=== PATIENT | female | born 1960 | race American Indian/Alaskan Native ===

== ENCOUNTER 2017-06-16 18:58 | Emergency (ER) | payer OTHER ==
[2017-06-16] MEDS ORDERED: ASPIRIN PO ONE (19:13)
[2017-06-16 19:56] LABS: Basophils % (Auto) 0.5 % (0.0-1.8); Eosinophils # (Auto) 0.1 K/mm3 (0.0-0.4); Eosinophils % (Auto) 0.8 % (0.0-4.3); Hematocrit 39.9 % (30.3-42.9); Hemoglobin 13.3 gm/dl (10.1-14.3); Lymphocytes # (Auto) 2.8 K/mm3 (1.2-5.4); Lymphocytes % (Auto) 33.4 % (13.4-35.0); Mean Corpuscular HGB Conc 33 % (30-34); Mean Corpuscular Hemoglobin 29 pg (28-32); Mean Corpuscular Volume 86 fl (79-97); Monocytes # (Auto) 0.5 K/mm3 (0.0-0.8); Monocytes % (Auto) 5.8 % (0.0-7.3); Platelet Count 237 K/mm3 (140-440); Red Blood Count 4.62 M/mm3 (3.65-5.03); Red Cell Distribution Width 14.1 % (13.2-15.2)
[2017-06-16 20:29] LABS: BUN/Creatinine Ratio 17; Blood Urea Nitrogen 10 mg/dL (7-17); Calcium 9.3 mg/dL (8.4-10.2); Hemolysis Index 11
--- NOTE | 2017-06-16 20:32 | XRay Report ---
FINAL REPORT PROCEDURE: XR CHEST ROUTINE 2V TECHNIQUE: PA and lateral chest radiographs were obtained. CPT 12628 HISTORY: chest tightness w/recent resp. issue COMPARISON: No prior studies are available for comparison. FINDINGS: Heart: Normal. Mediastinum/Vessels: Normal. Lungs/Pleural space: Normal. Bony thorax: No acute osseous abnormality. Other: IMPRESSION: Normal examination.
--- NOTE | 2017-06-16 21:04 | Emergency Department Report ---
ED Chest Pain HPI - General Chief Complaint: Chest Pain Stated Complaint: CHEST PAIN Time Seen by Provider: 06/16/17 21:02 Source: patient Mode of arrival: Ambulatory Limitations: No Limitations - History of Present Illness Initial Comments: Patient complains of midsternal chest pain over the past 2 days, reporting that it's an aching sharp pain in her upper abdomen and lower chest, which lasts for prolonged periods, and resolves spontaneously. Not associated with any exertion or activity. She has a history of high blood pressure and is concerned about low blood pressure, noting that she has had several medication changes over the past by her doctor, with recent change 4 days ago, stopping a diuretic, and starting on metoprolol once daily in the evening. Nonetheless, she is found that her blood pressure has actually been higher over the past all days, and her discomfort started 2 days ago as well. She also has a history of GERD symptoms, and had been on omeprazole previously, but reported that they did not work, and she stopped taking them. Past medical history is also significant for prediabetes, but she currently takes no medications for this. Blood pressure was evaluated by EMS yesterday, found to be 200/100. Chest discomfort is fairly prolonged, aching, mostly sharp, does not radiate, not associated with diaphoresis or nausea, and not associated with exertion. She has a past cardiac history which appears to have been a conduction disorder , and was treated by a methodologist at [facility] in [place], by an unknown procedure with catheterization, which appears to have been an electrophysiologic procedure, to correct an irregular or fast heartbeat. This was 15 years ago, and she has not had any problems since that time. She has a distant history of a cardiac stress test, which was normal at the time, but none in the past couple of years. She is currently under the care of a primary care physician, who is working to regulate her blood pressure. MD Complaint: chest pain Onset/Timin Onset: during rest, awoke with symptoms Pain Location: substernal, epigastric Pain Radiation: none Severity: moderate Severity scale (0 -10): 5 Quality: tightness, aching, sharp Consistency: constant Improves With: nothing Worsens With: nothing re: denies: nausea, vomting Other Symptoms: denies: fever, syncope Treatments Prior to Arrival: none Aspirin use within the Past 7 Days: (0) No - Related Data On Oral Contraceptives: No Previous Rx's Medication Instructions Recorded Last Taken Type Omeprazole 20 mg PO DAILY #30 capsule. 06/16/17 Unknown Rx Allergies Allergy/AdvReac Type Severity Reaction Status Date / Time No Known Allergies Allergy Unverified 06/16/17 19:12 Heart Score - HEART Score History: Slightly suspicious EKG: Normal Age: 45-65 Risk factors: 1-2 risk factors Troponin: < normal limit HEART Score: 2 ED Review of Systems ROS: Stated complaint: CHEST PAIN Other details as noted in HPI Comment: All other systems reviewed and negative Constitutional: no symptoms reported Respiratory: denies: cough, orthopnea, shortness of breath Cardiovascular: chest pain. denies: palpitations, dyspnea on exertion, edema, syncope Endocrine: no symptoms reported Gastrointestinal: abdominal pain, other (epigastric discomfort) Genitourinary: denies: urgency, dysuria, discharge Musculoskeletal: denies: back pain, joint swelling, arthralgia Skin: denies: rash, lesions Neurological: as per HPI Psychiatric: denies: anxiety, depression Hematological/Lymphatic: denies: easy bleeding, easy bruising ED Past Medical Hx - Past Medical History Hx Hypertension: Yes Hx GERD: Yes Additional medical history: Prediabetes - Surgical History Past Surgical History?: No Additional Surgical History: Cardiac ablation procedure - Social History Smoking Status: Never Smoker Substance Use Type: None - Medications Home Medications: Home Medications Medication Instructions Recorded Confirmed Last Taken Type Omeprazole 20 mg PO DAILY #30 capsule. 06/16/17 Unknown Rx ED Physical Exam - General Limitations: No Limitations General appearance: alert, in no apparent distress - Head Head exam: Present: atraumatic, normocephalic - Eye Eye exam: Present: normal appearance - ENT ENT exam: Present: mucous membranes moist - Neck Neck exam: Present: normal inspection - Respiratory Respiratory exam: Present: normal lung sounds bilaterally - Cardiovascular Cardiovascular Exam: Present: regular rate, bradycardia. Absent: systolic murmur, diastolic murmur - GI/Abdominal GI/Abdominal exam: Present: tenderness (epigastrium), normal bowel sounds. Absent: guarding, rebound - Rectal Rectal exam: Present: deferred - Neurological Exam Neurological exam: Present: alert, oriented X3 - Psychiatric Psychiatric exam: Present: normal affect, normal mood - Skin Skin exam: Present: warm, dry, intact, normal color. Absent: rash ED Course Vital Signs 06/16/17 06/16/17 19:09 20:24 Temperature 98.6 F Pulse Rate 59 L Respiratory 18 18 Rate Blood Pressure 144/122 O2 Sat by Pulse 99 99 Oximetry - Reevaluation(s) Reevaluation #1: 06/16/17 23:22 Patient is stable on examination, although blood pressure tends to remain in the 150-170 range systolic, but this is not sufficient region for patient to receive inpatient evaluation. Patient has no findings of acute coronary syndrome, and repeat EKG taken at 2315 hrs. shows no acute findings, no STEMI, and is unchanged from previous tracing. Repeat troponin is also negative. ED Medical Decision Making - Lab Data Result diagrams: 06/16/17 19:32 06/16/17 19:32 - EKG Data -: EKG Interpreted by Me (normal EKG) EKG shows normal: sinus rhythm, ST-T waves (no acute ST-T wave changes, no STEMI ) Rate: normal - Radiology Data Radiology results: report reviewed Normal exam, no acute cardiopulmonary abdomen relatively - Medical Decision Making Although this patient has some risk factors for cardiac disease, symptoms are not consistent with acute coronary syndrome, and are more consistent with gastroesophageal reflux, and she also has reproducible discomfort in the epigastrium, and mild chest wall discomfort in the lower inframammary and left costochondral area. Cardiac biomarkers are negative, as are her EKGs, even though her blood pressure is mildly elevated, this is not a significant concern , and can be managed by her primary care physician in the office with close follow-up. Given the patient has not had a nuclear stress test in several years, a provocative stress of heart function under stress, would be recommended, but this can be safely performed on an outpatient basis on an expedited examination by her doctor. She will be recommended this at discharge. - Differential Diagnosis acute recurrent syndrome, myocardial infarction, esophageal reflux Critical Care Time: No Critical care attestation.: If time is entered above; I have spent that time in minutes in the direct care of this critically ill patient, excluding procedure time. ED Disposition Clinical Impression: Non-cardiac chest pain, Chronic GERD Hypertension Qualifiers: Hypertension type: essential hypertension Qualified Code(s): I10 - Essential ( primary) hypertension GERD (gastroesophageal reflux disease) Qualifiers: Esophagitis presence: esophagitis presence not specified Qualified Code(s): K21.9 - Gastro-esophageal reflux disease without esophagitis Disposition: TO HOME OR SELFCARE Is pt being admited?: No Does the pt Need Aspirin: No Condition: Stable Instructions: Chest Pain (ED), Diet for Ulcers and Gastritis (ED), Gastroesophageal Reflux Disease (ED), Hypertension (ED) Additional Instructions: We recommend that you follow up with your doctor later this week for recheck of your blood pressure medications, as her blood pressure has remained high, in the 144-175 range systolic. Diastolic blood pressure has ranged from 68-80 mmHg. The doctor may want to increase the amount of medicine that you're currently taking, may want to switch her to different medication, or use a combination of this medicine plus a new medicine, but all of these are appropriate strategies for treating blood pressure. We have tested for heart disease, and examination today was stable showing no signs of heart attack. We did find symptoms of excess stomach acid, and recommend that you resume taking your antacid medicine, omeprazole, 20 mg daily on a regular basis, in addition to her blood pressure medicine. We also recommend that you have a repeat cardiac stress test, but this can be arranged on an outpatient basis through your primary care doctor's office, and you should discuss this at your repeat visit this week. Return if he had any severe or recurrent symptoms for repeat examination. Prescriptions: Omeprazole 20 mg PO DAILY #30 capsule. Referrals: PRIMARY CARE, [Primary Care Provider] - 3-5 Days Time of Disposition: 23:23
[2017-06-16] MEDS ORDERED: PROTONIX PO ONE (21:44)
[2017-06-16] MEDS ORDERED: CATAPRES PO ONE (21:44)
[2017-06-16 23:25] VITALS: BP 140/63
== END 2017-06-16 23:48 | disposition home or self-care (01) ==
LOC: ED 18:58
DX: I10 Essential (primary) hypertension (principal); R07.89 Other chest pain; K21.9 Gastro-esophageal reflux disease without esophagitis
CPT/HCPCS: 36415; 71046; 80048; 84484; 85025; 93005; 93010; 99284